=== PATIENT | female | born 1970 | race Caucasian/White ===

== ENCOUNTER 2023-12-02 11:37 | Outpatient (CLI) | payer SELFPAY ==
--- NOTE | ~2023-12-02 | XR_ITS ---
XR lumbar spine 2-3V DATE: 12/02/2023 12:27 INDICATION: Acute low back pain radiating down both legs for one month. No injury. TECHNIQUE: AP, lateral, coned lateral lumbosacral views COMPARISON: None FINDINGS: Diffuse osteopenia. Mild levoscoliosis of the lumbar spine. Included lower thoracic and lumbar pedicles are intact. No fracture or bone destruction. As prominent degenerative change in particular at L4-5 and L5-S1 with associated grade 1 anterolisthe sis at each of these levels. There is mild to moderate degenerative disc disease, greatest at L4-5. The sacroiliac joints are intact. Status post cholecystectomy. IMPRESSION: Osteopenia Mild levoscoliosis Prominent degenerative changes apophyseal joints with associated grade 1 anterolisthesis at L4-5 and L5-S1 Mild to moderate degenerative disc disease Reviewed, dictated and finalized at location [facility]. IMPRESSION: Osteopenia Mild levoscoliosis Prominent degenerative changes apophyseal joints with associated grade 1 mack listhesis at L4-5 and L5-S1 Mild to moderate degenerative disc disease
== END 2023-12-02 11:38 ==
DX: M43.06 Spondylolysis, lumbar region (principal); M43.07 Spondylolysis, lumbosacral region; M51.36 Other intervertebral disc degeneration, lumbar region; M85.88 Other specified disorders of bone density and structure, other site
CPT/HCPCS: 72100

== ENCOUNTER 2024-04-08 09:42 | Outpatient (CLI) | payer OTHER, SELFPAY ==
--- NOTE | ~2024-04-08 | MR_ITS ---
MRI of the lumbar spine Clinical History: Back pain Technique: Axial T2-weighted images, and sagittal T1-weighted, T2-weighted, and and T2 fat-sat images were acquired. Findings: No fracture seen. There is 6 mm anterolisthesis of L4 over L5. No bone marrow signal abnorm ality seen. At L1-L2, L2-L3, L3-L4, there is no disc bulge or herniation. There are moderate facet joint degenera tive changes at these levels. No spinal canal stenosis or neural foraminal narrowing at these levels. At L4-L5, there is disc bulge/uncovering with severe facet arthropathy. There is moderate to severe s amena canal stenosis. There is mild right neural foraminal narrowing. Left neural foramen preserved. At L5-S1, there is mild disc bulge with annular fissure. There is severe facet arthropathy. No centra l canal stenosis. There is mild to moderate bilateral neural foraminal narrowing. Paravertebral soft tissues are unremarkable. Impression: 6 mm anterolisthesis of L4 over L5. Moderate to advanced degenerative spondylosis at L4-L5, as above. Moderate degenerative spondylosis a t L5-S1, as above. Reviewed, dictated and finalized at [facility]. Impression: 6 mm anterolisthesis of L4 over L5. Moderate to advanced degenerative spondylosis at L4-L5, as above. Moderate dege nerative spondylosis at L5-S1, as above.
== END 2024-04-08 09:43 ==
PROVIDERS: PCP Family Medicine
DX: M47.816 Spondylosis without myelopathy or radiculopathy, lumbar region (principal)
CPT/HCPCS: 72148